=== PATIENT | male | born 1950 | race Caucasian/White ===

== ENCOUNTER 2019-02-02 06:55 | Day surgery (SDC) | payer MEDICARE ==
[2019-02-01 11:03] VITALS: BMI 26.4
[~2019-02-02 06:55] MED LIST: LACTATED RINGERS 1,000 ML IV SCH; LIDOCAINE 1% 20 ML VIAL (10MG/ML) FOR IV START INTRADERMA PRN
[2019-02-02 07:29] VITALS: TEMP 97.9
[2019-02-02 07:37] LABS: Glucose,Whole Blood 140 mg/dL (75-99)
[2019-02-02] MEDS ORDERED: LIDOCAINE 1% INJ 10MG/ML (20 ML MDV) ONE (07:50)
[2019-02-02] MEDS ORDERED: PROPOFOL 10 MG/ML 20 ML VIAL IV ONE (07:50)
--- NOTE | 2019-02-02 08:01 | P.GSHP ---
History of Present Illness H&P Date: 02/02/19 Chief Complaint: Screening colonoscopy This is a 61-year-old male presents today for screening colonoscopy. Patient denies a significant GI complaints. 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 Past Anesthesia/Blood Transfusion Reactions: No Reported Reaction Smoking Status: Former smoker - Past Family History Mother Family Medical History: Cancer Father Family Medical History: Deep Vein Thrombosis (DVT) Medications and Allergies Home Medications Medication Instructions Recorded Confirmed Type Ascorbic Acid [Vitamin C] 1,000 mg PO DAILY 01/12/15 02/01/19 History Benazepril HCl 20 mg PO BID 01/12/15 02/01/19 History Multivitamins, Thera [Theragran] 1 tab PO DAILY 01/12/15 02/01/19 History Simvastatin [Zocor] 40 mg PO DAILY 01/12/15 02/01/19 History Vitamin B Complex 1 cap PO BID 01/12/15 02/01/19 History metFORMIN HCL [Glucophage] 500 mg PO BID 01/12/15 02/01/19 History Glimepride(Dose Unknown) 1 tab PO BID 02/01/19 02/01/19 History Allergies Allergy/AdvReac Type Severity Reaction Status Date / Time benazepril [From Lotensin] Allergy Unknown Verified 02/02/19 07:05 ciprofloxacin [From Cipro] Allergy Rash/Hives Verified 02/02/19 07:05 ciprofloxacin HCl Allergy Rash/Hives Verified 02/02/19 07:05 [From Cipro] metronidazole [From Flagyl] Allergy Rash/Hives Verified 02/02/19 07:05 scallops Allergy Anaphylaxis Uncoded 02/02/19 07:05 Surgical - Exam Vital Signs Temp Pulse Resp BP Pulse Ox 97.9 F 62 16 142/69 98 02/02/19 07:25 02/02/19 07:25 02/02/19 07:25 02/02/19 07:25 02/02/19 07:25 - General well developed, well nourished, no distress - Eyes PERRL - ENT normal pinna - Neck no masses - Respiratory normal expansion - Cardiovascular Rhythm: regular - Abdomen Abdomen: soft Results - Labs Abnormal Lab Results - Last 24 Hours (Table) 02/02/19 Range/Units 07:22 POC Glucose (mg/dL) 140 H (75-99) mg/dL Assessment and Plan Assessment: We'll perform screening colonoscopy.
--- NOTE | 2019-02-02 08:12 | P.OP ---
Date of Procedure: 02/02/19 Preoperative Diagnosis: Screening colonoscopy Postoperative Diagnosis: Normal colon Procedure(s) Performed: Colonoscopy Anesthesia: MAC Surgeon: Roberto Gamez Pathology: none sent Condition: stable Disposition: PACU Description of Procedure: PROCEDURE: The patient was placed on the endoscopy table in the lateral position. Digital rectal examination was performed which revealed no abnormalities. The prostate was symmetrical without nodules. Flexible colonoscope was then placed in the patient's anus and passed throughout the entire colon. The ileocecal valve was visualized. The cecum, ascending, transverse, descending and sigmoid colon were normal. The rectum was normal as well. There were no masses, polyps or diverticula noted in the entire colon. SUMMARY OF FINDINGS: Normal colonoscopy.
[2019-02-02 08:25] VITALS: PULSE 70
[2019-02-02 08:26] VITALS: BP 118/72; RESP 18
== END 2019-02-02 08:43 | disposition home or self-care (01) ==
LOC: ORWHC2ENDO 06:55
PROVIDERS: ATTEND Surgery
DX: Z12.11 Encounter for screening for malignant neoplasm of colon (principal); E11.9 Type 2 diabetes mellitus without complications; E78.5 Hyperlipidemia, unspecified; I10 Essential (primary) hypertension; N42.9 Disorder of prostate, unspecified; R01.1 Cardiac murmur, unspecified; R00.2 Palpitations; R05 Cough; Z90.49 Acquired absence of other specified parts of digestive tract; Z89.021 Acquired absence of right finger(s); Z87.891 Personal history of nicotine dependence; Z80.9 Family history of malignant neoplasm, unspecified; Z84.89 Family history of other specified conditions; Z79.84 Long term (current) use of oral hypoglycemic drugs; Z79.899 Other long term (current) drug therapy; Z88.1 Allergy status to other antibiotic agents; Z88.8 Allergy status to other drugs, medicaments and biological substances; Z91.018 Allergy to other foods
CPT/HCPCS: J2001; J2704; G0121

== ENCOUNTER 2021-12-04 12:44 | Emergency (ER) | payer MEDICARE ==
[2021-12-04] MEDS ORDERED: KETOROLAC 15 MG/ML 1 ML VIAL IVP STA (13:48)
--- NOTE | 2021-12-04 14:48 | XR ---
EXAMINATION TYPE: XR chest 2V DATE OF EXAM: 12/04/2021 COMPARISON: 01/12/2015 HISTORY: Shortness of breath TECHNIQUE: Frontal and lateral views of the chest are obtained. FINDINGS: Scattered senescent parenchymal changes noted. Hyperinflation compatible with COPD. No evidence for infiltrate. No evidence for atelectasis. Heart size is stable. Mediastinal structures are stable and grossly unremarkable. No evidence for hilar prominence. Degenerative changes dorsal spine. IMPRESSION: 1. No evidence for acute pulmonary disease.
[2021-12-04 14:51] LABS: Albumin 4.9 g/dL (3.5-5.0); Calcium 9.5 mg/dL (8.4-10.2); Magnesium 1.6 mg/dL (1.6-2.3); Potassium 4.4 mmol/L (3.5-5.1); Total Bilirubin 0.4 mg/dL (0.2-1.3); Total Protein 7.8 g/dL (6.3-8.2)
[2021-12-04 14:57] LABS: INR 0.9 (<1.2); Partial Thromboplastin Time 24.1 sec (22.0-30.0); Prothrombin Time 10.1 sec (9.0-12.0)
--- NOTE | 2021-12-04 15:39 | ED ---
ENT HPI - General Chief complaint: ENT Stated complaint: jaw pain Time Seen by Provider: 12/04/21 13:11 Source: patient, EMS Mode of arrival: EMS Limitations: no limitations - History of Present Illness Initial comments: Patient is a 71-year-old male with past medical history of hyperlipidemia, hypertension, and diabetes mellitus who presents to the emergency department for evaluation of right-sided jaw pain. Patient states this is a chronic issue for him. Denies tooth pain and mouth/cheek swelling.States he was diagnosed with COVID-19 2 days ago with at home test. Patient feels that COVID-19 is aggravating his jaw pain. Denies chest pain, shortness of breath, nausea, vomiting, sweating. - Related Data Home Medications Medication Instructions Recorded Confirmed Ascorbic Acid [Vitamin C] 1,000 mg PO DAILY 01/12/15 02/01/19 Benazepril HCl 20 mg PO BID 01/12/15 02/01/19 Multivitamins, Thera [Theragran] 1 tab PO DAILY 01/12/15 02/01/19 Simvastatin [Zocor] 40 mg PO DAILY 01/12/15 02/01/19 Vitamin B Complex 1 cap PO BID 01/12/15 02/01/19 metFORMIN HCL [Glucophage] 500 mg PO BID 01/12/15 02/01/19 Glimepride(Dose Unknown) 1 tab PO BID 02/01/19 02/01/19 Allergies Allergy/AdvReac Type Severity Reaction Status Date / Time benazepril [From Lotensin] Allergy Unknown Verified 02/02/19 07:05 ciprofloxacin [From Cipro] Allergy Rash/Hives Verified 02/02/19 07:05 ciprofloxacin HCl Allergy Rash/Hives Verified 02/02/19 07:05 [From Cipro] metronidazole [From Flagyl] Allergy Rash/Hives Verified 02/02/19 07:05 scallops Allergy Anaphylaxis Uncoded 02/02/19 07:05 Review of Systems ROS Statement: Those systems with pertinent positive or pertinent negative responses have been documented in the HPI. ROS Other: All systems not noted in ROS Statement are negative. 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 Absent: scleral icterus, conjunctival injection, periorbital swelling ENT exam: Present: normal exam, normal oropharynx, mucous membranes moist Neck exam: Present: normal inspection, full ROM. Absent: tenderness Respiratory exam: Present: normal lung sounds bilaterally. Absent: respiratory distress, wheezes, rales, rhonchi, stridor, chest wall tenderness Cardiovascular Exam: Present: regular rate, normal rhythm, normal heart sounds. Absent: systolic murmur, diastolic murmur, rubs, gallop, clicks GI/Abdominal exam: Present: soft, normal bowel sounds. Absent: distended, tenderness, guarding, rebound, rigid Neurological exam: Present: alert, oriented X3, CN II-XII intact Psychiatric exam: Present: normal affect, normal mood Skin exam: Present: warm, dry, intact, normal color. Absent: rash Course Vital Signs 12/04/21 12/04/21 13:01 17:12 Temperature 99.0 F 98.1 F Pulse Rate 65 55 L Respiratory 20 16 Rate Blood Pressure 165/80 137/80 O2 Sat by Pulse 96 98 Oximetry Medical Decision Making - Medical Decision Making This is a 71-year-old male who presents with acute on chronic jaw pain. Thorough history and examination were performed. Pain controlled. Cardiac workup is negative. COVID-19 is detected. Patient given prescription for Paxlovid. Dr. Cummings is my attending. - Lab Data Result diagrams: 12/04/21 13:58 12/04/21 13:58 Lab Results 12/04/21 12/04/21 12/04/21 Range/Units 13:58 13:58 13:58 WBC 3.5 L (3.8-10.6) k/uL RBC 4.77 (4.30-5.90) m/uL Hgb 14.6 (13.0-17.5) gm/dL Hct 44.2 (39.0-53.0) % MCV 92.7 (80.0-100.0) fL MCH 30.5 (25.0-35.0) pg MCHC 32.9 (31.0-37.0) g/dL RDW 12.2 (11.5-15.5) % Plt Count 195 (150-450) k/uL MPV 7.8 Neutrophils % 49 % Lymphocytes % 28 % Monocytes % 19 % Eosinophils % 0 % Basophils % 1 % Neutrophils # 1.7 (1.3-7.7) k/uL Lymphocytes # 1.0 (1.0-4.8) k/uL Monocytes # 0.7 (0-1.0) k/uL Eosinophils # 0.0 (0-0.7) k/uL Basophils # 0.0 (0-0.2) k/uL PT 10.1 (9.0-12.0) sec INR 0.9 (<1.2) APTT 24.1 (22.0-30.0) sec Sodium 138 (137-145) mmol/L Potassium 4.4 (3.5-5.1) mmol/L Chloride 98 (98-107) mmol/L Carbon Dioxide 25 (22-30) mmol/L Anion Gap 15 mmol/L BUN 19 (9-20) mg/dL Creatinine 1.08 (0.66-1.25) mg/dL Est GFR (CKD-EPI)AfAm 80 (>60 ml/min/1.73 sqM) Est GFR (CKD-EPI)NonAf 69 (>60 ml/min/1.73 sqM) Glucose 108 H (74-99) mg/dL Calcium 9.5 (8.4-10.2) mg/dL Magnesium 1.6 (1.6-2.3) mg/dL Total Bilirubin 0.4 (0.2-1.3) mg/dL AST 56 (17-59) U/L ALT 45 (4-49) U/L Alkaline Phosphatase 52 (38-126) U/L Troponin I (0.000-0.034) ng/mL Total Protein 7.8 (6.3-8.2) g/dL Albumin 4.9 (3.5-5.0) g/dL Coronavirus (PCR) (Not Detectd) 12/04/21 12/04/21 Range/Units 13:58 14:33 WBC (3.8-10.6) k/uL RBC (4.30-5.90) m/uL Hgb (13.0-17.5) gm/dL Hct (39.0-53.0) % MCV (80.0-100.0) fL MCH (25.0-35.0) pg MCHC (31.0-37.0) g/dL RDW (11.5-15.5) % Plt Count (150-450) k/uL MPV Neutrophils % % Lymphocytes % % Monocytes % % Eosinophils % % Basophils % % Neutrophils # (1.3-7.7) k/uL Lymphocytes # (1.0-4.8) k/uL Monocytes # (0-1.0) k/uL Eosinophils # (0-0.7) k/uL Basophils # (0-0.2) k/uL PT (9.0-12.0) sec INR (<1.2) APTT (22.0-30.0) sec Sodium (137-145) mmol/L Potassium (3.5-5.1) mmol/L Chloride (98-107) mmol/L Carbon Dioxide (22-30) mmol/L Anion Gap mmol/L BUN (9-20) mg/dL Creatinine (0.66-1.25) mg/dL Est GFR (CKD-EPI)AfAm (>60 ml/min/1.73 sqM) Est GFR (CKD-EPI)NonAf (>60 ml/min/1.73 sqM) Glucose (74-99) mg/dL Calcium (8.4-10.2) mg/dL Magnesium (1.6-2.3) mg/dL Total Bilirubin (0.2-1.3) mg/dL AST (17-59) U/L ALT (4-49) U/L Alkaline Phosphatase (38-126) U/L Troponin I <0.012 (0.000-0.034) ng/mL Total Protein (6.3-8.2) g/dL Albumin (3.5-5.0) g/dL Coronavirus (PCR) Detected A (Not Detectd) - EKG Data EKG Comments: EKG taken at 14:58 Sinus rhythm, right bundle-branch block Ventricular rate 81 MT interval 126 QRS duration 106 QTc 439 Disposition Clinical Impression: Jaw pain Disposition: HOME SELF-CARE Condition: Good Instructions (If sedation given, give patient instructions): Coronavirus Disease 2019 (COVID-19) Additional Instructions: Take anti-inflammatories such as Motrin or Tylenol for pain. Take Palovid prescription to the pharmacy to fill. Do not take home prescription of atorv astatin while taking Paxlovid as they can interact. Do not restart simvastatin until 3 days after Paxlovid prescription is finished. Quarantine at home for 5 days. Return to the emergency department experience new, concerning, or worsening symptoms. Is patient prescribed a controlled substance at d/c from ED?: No Referrals: Gilmar Gilmore MD [Primary Care Provider] - 1-2 days Time of Disposition: 15:39
[2021-12-04 16:27] LABS: Basophils % (A) 1 %; Eosinophils % (A) 0 %; HCT 44.2 % (39.0-53.0); HGB 14.6 gm/dL (13.0-17.5); Lymphocytes % (A) 28 %; MCH 30.5 pg (25.0-35.0); MCHC 32.9 g/dL (31.0-37.0); MCV 92.7 fL (80.0-100.0); Mean Platelet Volume 7.8; Monocytes # (A) 0.7 k/uL (0-1.0); Monocytes % (A) 19 %; Neutrophils # (A) 1.7 k/uL (1.3-7.7); Neutrophils % (A) 49 %; Platelet Count 195 k/uL (150-450); RBC 4.77 m/uL (4.30-5.90); RDW 12.2 % (11.5-15.5); WBC 3.5 k/uL (3.8-10.6)
[2021-12-04 17:15] VITALS: BP 137/80; PULSE 55; RESP 16; TEMP 98.1
== END 2021-12-04 17:15 | disposition home or self-care (01) ==
LOC: EC 12:44
DX: R68.84 Jaw pain (principal); E11.9 Type 2 diabetes mellitus without complications; E78.5 Hyperlipidemia, unspecified; I10 Essential (primary) hypertension; Z20.822 Contact with and (suspected) exposure to COVID-19; Z88.6 Allergy status to analgesic agent; Z88.8 Allergy status to other drugs, medicaments and biological substances; Z88.3 Allergy status to other anti-infective agents
CPT/HCPCS: 36415; 93005; 80053; 83735; 84484; 85025; 85610; 85730; 87635; 71046; 99284; 96374; J1885